=== PATIENT | male | born 1995 | race Caucasian/White ===

== ENCOUNTER 2017-01-08 16:40 | Inpatient (IN) | payer BC ==
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
[2017-01-08] MEDS ORDERED: IBUPROFEN 400 MG TAB PO PRN (21:40)
[2017-01-08] MEDS ORDERED: ONDANSETRON ODT 4 MG TAB PO PRN (21:41)
[2017-01-08] MEDS ORDERED: CYCLOBENZAPRINE 10 MG TAB PO PRN (21:45)
[2017-01-08] MEDS ORDERED: ACETAMINOPHEN TAB 325 MG TAB PO PRN (21:47)
[2017-01-08] MEDS ORDERED: LORazepam 1 MG TAB PO PRN (21:47)
[2017-01-08] MEDS ORDERED: MAG HYDROX/AL HYDROX/SIMETH 30 ML CUP PO PRN (21:47)
[2017-01-08] MEDS ORDERED: MAGNESIUM HYDROXIDE 2,400 MG/10 ML CUP PO PRN (21:47)
--- NOTE | 2017-01-08 22:56 | P.MDCNMH ---
History of Present Illness H&P Date: 01/08/17 Chief Complaint: suicidal ideation 21 yo male presents to the emergency department with a chief complaint of suicidal thoughts. Patient stated that he has been using hydromorphone and Percocet over the last several days because he ran out of Suboxone which he has been on for the last 6 months. Before that and for 4 years he was using prescription drugs. This morning when he woke up he vomited and then all of a sudden while he was at work at around 3 PM he felt a little depressed and thought about taking his life. He told the emergency physician that when he went home he did have a gun pointed to his head. He currently admits that what he did was stupid and that he thinks that it was just a ''down moment''. He never had significant suicidal thoughts or attempts in the past. He said he gets depressed and anxious slightly every now and then but he is not on any medicine for that. At one point he used to take Xanax for anxiety. He denied any recent fever, chills, shortness of breath, any pain, urinary symptoms, diarrhea, headaches or visual changes. Review of Systems 12 point review of system was performed, negative except for HPI Past Medical History Past Medical History: No Reported History Additional Past Medical History / Comment(s): right-sided rotator cuff injury History of Any Multi-Drug Resistant Organisms: None Reported Past Surgical History: No Surgical Hx Reported Past Psychological History: Anxiety Smoking Status: Current every day smoker Past Alcohol Use History: Occasional Past Drug Use History: Marijuana, Opiates, Prescription Drug Abuse Medications and Allergies Home Medications Medication Instructions Recorded Confirmed Type Buprenorphine HCl/Naloxone HCl 0.5 film SL BID 01/08/17 01/08/17 History [Suboxone 4 mg-1 mg Sl Film] diphenhydrAMINE HCL [Benadryl] 25 mg PO HS PRN 01/08/17 01/08/17 History Allergies Allergy/AdvReac Type Severity Reaction Status Date / Time No Known Allergies Allergy Verified 01/08/17 18:09 Physical Exam Vitals: Vital Signs Temp Pulse Resp BP Pulse Ox 01/08/17 21:21 73 16 117/57 95 01/08/17 16:43 98.5 F 77 18 126/68 98 Intake and Output 01/08/17 01/08/17 01/08/17 06:59 14:59 22:59 Other: Weight 83.915 kg Patient Weight 01/09/17 06:59 Weight 83.915 kg Constitutional: No acute distress, conversant, pleasant Eyes:Anicteric sclerae, moist conjunctiva, no lid-lag, PERRLA, ENMT: Oropharynx clear, no erythema, exudates Neck: Supple, FROM, no masses, or JVD, No carotid bruits, No thyromegaly Lungs: Clear to auscultation, Clear to percussion, Normal respiratory effort, no accessory muscle use Cardiovascular: Heart regular in rate and rhythm, No murmurs, gallops, or rubs, No peripheral edema Abdominal: Soft, Nontender, no guarding, rebound or rigidity, Normoactive bowel sounds, No hepatomegaly, No splenomegaly, No palpable mass Skin: Normal temperature, tone, texture, turgor, no induration, No subcutaneous nodules, No rash, lesions, No ulcers Extremities: No digital cyanosis, No clubbing, Pedal pulses intact and symmetrical, Radial pulses intact and symmetrical, No calf tenderness Psychiatric: Alert and oriented to person, place and time, appropriate affect, intact judgement Neuro: Muscles Strength 5/5 in all 4 extremities, Sensation to light touch grossly present throughout, Cranial nerves II-XII grossly intact, no focal sensory deficits Cranial Nerve Examination - Cranial Nerves Cranial Nerve II- Optic: Intact Cranial Nerve III- Oculomotor: Intact Cranial Nerve IV- Trochlear: Intact Cranial Nerve V- Trigeminal: Intact Cranial Nerve - Abducens: Intact Cranial Nerve VII- Facial: Intact Cranial Nerve VIII- Auditory: Intact Cranial Nerve IX- Glossopharyngeal: Intact Cranial Nerve X- Vagus: Intact Cranial Nerve XI- Accessory: Intact Cranial Nerve XII- Hypoglossal: Intact Results Labs: Abnormal Lab Results - Last 24 Hours (Table) 01/08/17 Range/Units 17:30 Urine Opiates Screen Detected H (NotDetected) Ur Oxycodone Screen Detected H (NotDetected) Urine Cocaine Screen Detected H (NotDetected) U Marijuana (THC) Screen Detected H (NotDetected) Assessment and Plan Plan: #1 Suicidal ideations: Patient is currently not suicidal Management per psychiatry Suicide precautions #2 Opiates abuse/cannabis abuse: Counseled regarding quitting Urine tox reviewed #3 Smoking: Counseled regarding quitting
[2017-01-08] MEDS: cloNIDine HCL 0.1 MG TAB PO SCH (23:01)
[2017-01-09 00:01] VITALS: BMI 22.9
[2017-01-09] MEDS: cloNIDine HCL 0.1 MG TAB PO SCH ×6 (03:42→23:48)
[2017-01-09 09:03] LABS: Basophils % (A) 0 %; CH 32.3; CHCM 34.4; Eosinophils # (A) 0.1 k/uL (0-0.7); Eosinophils % (A) 1 %; HDW 2.54; HGB 16.2 gm/dL (13.0-17.5); Luc # (Auto) 0.13; Luc % (Auto) 2; Lymphocytes # (A) 1.6 k/uL (1.0-4.8); Lymphocytes % (A) 25 %; MCH 31.8 pg (25.0-35.0); MCHC 33.8 g/dL (31.0-37.0); MCV 94.3 fL (80.0-100.0); Mean Platelet Volume 7.4; Monocytes # (A) 0.4 k/uL (0-1.0); Monocytes % (A) 6 %; Neutrophils # (A) 4.1 k/uL (1.3-7.7); Neutrophils % (A) 65 %; RBC 5.09 m/uL (4.30-5.90); RDW 12.5 % (11.5-15.5); WBC 6.3 k/uL (3.8-10.6); WBC (Perox) 6.45
[2017-01-09] MEDS: NICOTINE 7MG/24HR PATCH TRANSDERM SCH (09:06)
[2017-01-09] MEDS: FAMOTIDINE 20 MG TAB PO SCH (09:06)
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
[2017-01-09 09:32] LABS: ALT 33 U/L (21-72); AST 21 U/L (17-59); Alkaline Phosphatase 58 U/L (38-126); Anion Gap 11 mmol/L; Blood Urea Nitrogen 11 mg/dL (9-20); Calcium 9.7 mg/dL (8.4-10.2); Carbon Dioxide 26 mmol/L (22-30); Chloride 105 mmol/L (98-107); Glucose 110 mg/dL (74-99); Non-African American GFR(MDRD) >60 (>60 ml/min/1.73 sqM); Potassium 4.4 mmol/L (3.5-5.1); Sodium 142 mmol/L (137-145)
[2017-01-09] MEDS: MULTIVITAMINS, THERA 1 EACH TAB PO SCH (11:57)
[2017-01-09] MEDS: LORazepam 1 MG TAB PO PRN (16:53)
[2017-01-09] MEDS: LOPERAMIDE 2 MG CAP PO PRN (16:53)
[2017-01-10] MEDS: cloNIDine HCL 0.1 MG TAB PO SCH ×5 (04:47→20:09)
[2017-01-10] MEDS: NICOTINE 7MG/24HR PATCH TRANSDERM SCH (08:17)
[2017-01-10] MEDS: FAMOTIDINE 20 MG TAB PO SCH (08:17)
[2017-01-10] MEDS: LORazepam 1 MG TAB PO PRN ×2 (08:18→16:52)
[2017-01-10] MEDS: LOPERAMIDE 2 MG CAP PO PRN ×3 (08:18→21:34)
[2017-01-10] MEDS: MULTIVITAMINS, THERA 1 EACH TAB PO SCH (12:10)
--- NOTE | 2017-01-10 13:40 | P.PN ---
Progress Note - Text Progress Note Date: 01/10/17 I was asked to eval patient for low tsh. Patient says he has lost weight recently. Decreased appetite. gen:alert and oriented lungs:clear to auscultation heart:s1s2 abdomen:soft and depressible,non tender ext:no edema will check free t4 increase nicotine patch since patient smokes a pack and half daily
[2017-01-10] MEDS: NICOTINE 21MG/24HR PATCH TRANSDERM SCH (13:51)
--- NOTE | 2017-01-10 15:07 | P.PN ---
Progress Note - Text Progress Note Date: 01/10/17 interval history: [place] [facility] [place] Mckee.he reports that he does want to get his sobriety. He talks about looking at rehab programs. It sounds like his family is involved with this. He talks about circumstances regarding his admission. He talks of wanting to get back to work. B medications for helping with withdrawal from opioids are giving him benefit. He does describe some difficulty waiting 12 hours in terms of the Ativan. Mental status exam: He is alert and cooperative with the interview. His speech is fluent, not rapid or pressured. Thought processes are organized. His mood overall seems to be stable. His affect does show range. He has not verbalize any thoughts of harm to self or others. No evidence of active psychosis. There is no agitation. Plan: We'll change the scheduling of Ativan to every 8 hours when necessary, maximum of 2 doses per day.no other new psychotropic medication recommendations at this time. Continue to monitor his mood and monitor regarding any suicidal ideations. We'll continue to cover this patient for Dr. Mckee through the weekend.
[2017-01-10] MEDS: DICYCLOMINE 10 MG CAP PO PRN (19:28)
[2017-01-11] MEDS: cloNIDine HCL 0.1 MG TAB PO SCH ×6 (04:00→21:12)
[2017-01-11] MEDS: LORazepam 1 MG TAB PO PRN ×2 (08:33→19:00)
[2017-01-11] MEDS: NICOTINE 21MG/24HR PATCH TRANSDERM SCH (08:33)
[2017-01-11] MEDS: FAMOTIDINE 20 MG TAB PO SCH (08:33)
[2017-01-11] MEDS: LOPERAMIDE 2 MG CAP PO PRN ×2 (11:50→21:13)
[2017-01-11] MEDS: MULTIVITAMINS, THERA 1 EACH TAB PO SCH (11:50)
--- NOTE | 2017-01-11 18:39 | P.PN ---
Progress Note - Text Progress Note Date: 01/11/17 Interval history: Patient is seen in [facility] today for Dr. Mckee. He does report they have family meeting today with his mom, dad and uncle. The meeting seemed to go very well. He feels a lot of support. He does describe that the medications for withdrawal are definitely giving him benefit. He talks about being able to do pushups today without feeling weak. He does talk about plans to go to rehab. He understands that there sometimes time Between the inpatient psychiatric treatment and inpatient chemical dependency treatment. He feels as though he has a strong support system. Mental status exam: He is alert and cooperative with the interview. His mood seems to be stable. His affect shows range. He does not verbalize any thoughts of harm to self or others. No evidence of psychosis or agitation. Plan: No new psychotropic medication recommendations at this point in time. Patient appears motivated for substance abuse treatment. Dr. Mckee to resume care this patient starting tomorrow.
[2017-01-11] MEDS: DICYCLOMINE 10 MG CAP PO PRN (18:58)
[2017-01-12] MEDS: cloNIDine HCL 0.1 MG TAB PO SCH ×4 (02:09→12:45)
[2017-01-12 06:51] VITALS: RESP 16; TEMP 98.5
[2017-01-12] MEDS: FAMOTIDINE 20 MG TAB PO SCH (08:41)
[2017-01-12] MEDS: LORazepam 1 MG TAB PO PRN (08:43)
[2017-01-12] MEDS: NICOTINE 21MG/24HR PATCH TRANSDERM SCH (09:43)
--- NOTE | 2017-01-12 11:02 | P.DS ---
Providers Date of admission: 01/08/17 21:11 Expected date of discharge: 01/12/17 Attending physician: Rickie Mckee Consults: 01/08/17 21:47 Consult Physician Routine Consulting Provider: Audrey Burger Consult Reason/Comments: H and P Do you want consulting provider notified?: Yes Primary care physician: Stated None - Discharge Diagnosis(es) (1) Adjustment disorder with depressed mood Current Visit: Yes Status: Acute Priority: High (2) Opioid use disorder, severe, dependence Current Visit: Yes Status: Acute Priority: High Hospital Course: Brief summary of admission note: This patient is a 21-year-old single male who was admitted to the mental health unit through the emergency room. The patient was brought in as he was making suicidal gestures and posting them. It was noted that he was recklessly driving and had also held a firearm to his head. He had reported on presentation that he has been on Suboxone and ran out 1 week ago due to a missed appointment. He was using opiates that he obtained from others to bridge the gap. He was feeling overwhelmed with financial stressors. Upon our initial interview he stated he did not want to and stated he just needed help. He verbalizes was his goal to come off of opiates completely. For full details please refer to my psychiatric evaluation dated 01/09/2017. Summary of hospital course: The patient was admitted to the mental health unit he signed in voluntarily. I performed the initial evaluation and he was seen by Dr. Rosa over the weekend. We met again this morning. The patient continues to endorse no history of major depressive episodes hypomanic or manic episodes or any psychosis. He feels that his recent behaviors were due to recent circumstances. He verbalizes a desire to go to inpatient chemical dependency treatment and verbalizes a goal of becoming sober from all substances. A family meeting was held this weekend by social work involving his mother and uncle. It was confirmed that firearms were removed. It appears they were supportive and felt the patient could be managed at home after discharge. The patient has demonstrated no agitated behavior here in the hospital. He has verbalize no suicidal ideation. He expresses remorse that he participated in most gestures. He spontaneously verbalizes future oriented thinking. Mental status exam: The patient is alert he is a male appearing his stated age. He stressors unclothing hygiene grooming adequate. Eye contact is good speech is fluent spontaneous nonpressured. He demonstrates a linear thought process and demonstrates no tangential thinking loose associations or flight of ideas. There is no evidence of hypomania or nancy. He endorses no auditory or visual hallucinations or specific delusions. There is no observed evidence of psychosis. He states he does not feel hopeless he has no suicidal ideation intent or plan or any homicidal ideation intent or plan. He spontaneously describes future oriented thinking. He demonstrates no verbal or physical aggressiveness. He remains oriented to person place and date. Affect is euthymic. He appropriate he participates in the conversation. Impressions 1. Adjustment disorder with depressed mood, rule out major depressive disorder , opioid use disorder rule out cannabis use disorder 2. Financial stressors Plan: The patient will be discharged from mental health unit today he will return home residing with family. He does not require a psychotropic medication at this time. We discussed major depressive disorders and the use of antidepressants but he feels that medication is not necessary. He plans on remaining off of Suboxone. He is inclined to participate in inpatient chemical dependency treatment however this may not be covered by his insurance and he may need to transition to outpatient mental health services to address his substance use disorder. There is no imminent safety risk he is appropriate for transition outpatient care. He is instructed to remain abstinent from alcohol marijuana and any other illicit substance. We discussed that use of these substances will elevate his safety risk. Social work has been in contact with the patient's family and we'll discuss the discharge plan. He is instructed to return to the hospital if any acute safety concerns. Patient Condition at Discharge: Stable Plan - Discharge Summary Discharge Rx Participant: No New Discharge Prescriptions: New Multivitamins, Thera [Multivitamin (formulary)] 1 each PO DAILY@1200 tab Nicotine 21Mg/24Hr Patch [Habitrol] 1 patch TRANSDERM DAILY #12 patch Discontinued Buprenorphine HCl/Naloxone HCl [Suboxone 4 mg-1 mg Sl Film] 0.5 film SL BID No Action diphenhydrAMINE HCL [Benadryl] 25 mg PO HS PRN PRN Reason: Allergy Symptoms Discharge Medication List diphenhydrAMINE HCL [Benadryl] 25 mg PO HS PRN 01/08/17 [History] Multivitamins, Thera [Multivitamin (formulary)] 1 each PO DAILY@1200 tab [Rx] Nicotine 21Mg/24Hr Patch [Habitrol] 1 patch TRANSDERM DAILY #12 patch 01/12/17 [ Rx] Follow up Appointment(s)/Referral(s): None,Stated [Primary Care Provider] - 1-2 days
[2017-01-12 11:04] VITALS: PULSE 85
[2017-01-12] MEDS: MULTIVITAMINS, THERA 1 EACH TAB PO SCH (12:44)
[2017-01-12 13:12] VITALS: BP 158/78
== END 2017-01-12 14:47 | disposition home or self-care (01) | DRG 881 ==
LOC: EC 16:40 → 3MHU 21:11
PROVIDERS: ADMIT Psychiatry & Neurology Psychiatry; ATTEND Psychiatry & Neurology Psychiatry
DX: F43.21 Adjustment disorder with depressed mood (principal); F11.20 Opioid dependence, uncomplicated; F32.9 Major depressive disorder, single episode, unspecified; F17.200 Nicotine dependence, unspecified, uncomplicated; R53.83 Other fatigue; F41.9 Anxiety disorder, unspecified; Z59.9 Problem related to housing and economic circumstances, unspecified
CPT/HCPCS: 80053; 80306; 82075; 84439; 84443; 85025; 99285